=== PATIENT | female | born 1995 | race Caucasian/White ===

== ENCOUNTER 2020-10-14 10:45 | Inpatient (IN) | payer OTHER ==
[2020-10-14] MEDS ORDERED: Ondansetron 4 MG/2 ML SDV IVPUSH PRN (19:23)
[2020-10-14] MEDS ORDERED: Sodium Chloride 0.9% 10 ML Syringe FLUSH PRN (19:23)
[2020-10-14] MEDS ORDERED: Calcium Carbonate 500 MG Tab.Chew PO PRN (19:23)
[2020-10-14] MEDS ORDERED: Oxytocin/Lactated Ringers 10 UNIT/1,000 ML BAG IV SCH ×2 (19:30→22:30)
--- NOTE | 2020-10-14 20:06 | PCM.LDHP ---
L&D History of Present Illness - General Date of Service: 10/14/20 Admit Problem/Dx: Patient Status Order with Admit Dx/Problem 10/14/20 19:23 Patient Status [ADT] Routine Admission Diagnosis/Problem Admission Diagnosis/Problem 10/14/20 19:58 Robin is a 25-year-old 1 para 0 white female who is at 40-2/7 weeks gestational age with an STELLA of 10/12/2020 admitted for induction of labor. Source of Information: Patient History Limitations: Reports: No Limitations - History of Present Illness Introduction:: Robin is a 25-year-old 1 para [address] Kamryn Villalobos who is at 40-2/7 weeks gestational age with an STELLA of 10/12/2020 admitted for induction of labor. The procedure and process of induction of labor, its risks, benefits, alternatives of care including allowing for natural onset of labor all discussed with patient and her Almas. They appear to understand and wish to proceed with the induction. She has given verbal consent for this. 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 STELLA 10/12/2020 based upon LMP started 01/06/2020 and supported by 2 ultrasounds done on 03/09/2020 and 02/24/2020. Patient was first seen for the at 11 weeks and 1 day regular basis throughout the . She made normal progress with normal fundal height growth. Her weight gain was from 236 pounds to 253 pounds for a 27 pound increase. Her vital signs are stable throughout the course. Patient had nausea early in and was treated with Zofran and promethazine gel. Ultrasound x2 were consistent with dates. Diabetic screen test was normal. Relatively unrem arkable was noted. Group B strep screen was negative. laboratory testing: Blood is a positive with a negative antibody screen. First hemoglobin was 13.7 and platelets were 367. She is rubella immune. RPR was nonreactive. Hepatitis B surface antigen was nonreactive. Chlamydia and gonorrhea were not detected. TSH done on 08/28/2018 was normal at 1.47 microunits/mL. Second trimester testing showed a hemoglobin of 11.7. 1 hour GTT was 170 mg/dL. Group B strep screen was negative. Patient received vaccinations days B 1993, HPV 2016, MMR 1996 and meningococcal 2011. Tdap was given on 07/30/2020. Allergies: Codeinereaction unknown Medications: 1. Zofran 8 mg - 1/2 tablet every 6 hours as needed for nausea 2. Vitamin B6 1 tablet daily at nighttime 3. vitamins 1 daily. Past medical history: 1. PCOS 2. History of abnormal Pap smear Family history: Mother father alive and well. 1 brother 1 sister alive and well. Maternal grandmother secondary to breast cancer in her 70s. Paternal grandfather, maternal grand father are alive in general good health. Paternal grandmother at an earlier age. No family history of bleeding, blood clotting, anesthesia or pregnancies problems. Social history: Patient is , lives in the [facility]. Does not use any significant muscle alcohol, drugs or tobacco. 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 Review of systems: In general patient has no complaints. Skin: Negative Lungs: No infectious symptoms or shortness of breath Cardiovascular: No chest pain or exercise intolerance Breasts: No lumps, changes in size, pain, dimpling, discharge or axillary or supraclavicular concerns. GI: Negative : changes noted Musculoskeletal: Negative Neurological: Negative In general the patient is well-developed, well-nourished, pleasant female of stated age in no acute distress. Skin is warm dry without lesions. HEENT, neck and back within normal limits. Lungs are clear with good breath sounds in all lung l[place]. Cardiovascular exam shows regular and rhythm without murmurs. Breast exam is deferred Abdomen is gravid with fundal height consistent with term . Genital per digital exam shows cervix to be 2+ centimeters, 90% effaced, -2 station, mid position, soft, cephalic presentation. AROM is undertaken with resultant clear amniotic fluid. Extremities and neurological exam are grossly within normal limits. - Related Data Allergies/Adverse Reactions: Allergies Allergy/AdvReac Type Severity Reaction Status Date / Time codeine Allergy Rash Verified 10/14/20 19:23 Home Medications: Home Meds Ondansetron [Zofran] 4 mg PO DAILY 09/15/20 [History] Vits #93/Iron Fum/FA [ Formula Tablet] 1 each PO DAILY 09/15/20 [History] Past Medical History - Past Health History Medical/Surgical History: Denies Medical/Surgical History H&P Review of Systems - Review of Systems: Review Of Systems: See Below L&D Exam - Exam Exam: See Below - Vital Signs Vital Signs: Last Vital Signs Temp 37.0 C 10/14/20 19:06 Pulse 85 10/14/20 19:06 Resp 16 10/14/20 19:06 BP 135/83 10/14/20 19:06 Pulse Ox 100 10/14/20 19:06 Weight: 115.984 kg - Patient Data Lab Results Last 24 hrs: Laboratory Results - last 24 hr 10/14/20 Range/Units 19:38 WBC 12.37 H (3.98-10.04) K/mm3 RBC 4.40 (3.98-5.22) M/mm3 Hgb 12.4 (11.2-15.7) gm/dl Hct 38.3 (34.1-44.9) % MCV 87.0 (79.4-94.8) fl MCH 28.2 (25.6-32.2) pg MCHC 32.4 (32.2-35.5) g/dl RDW Std Deviation 46.7 H (36.4-46.3) fL Plt Count 318 (182-369) K/mm3 MPV 10.1 (9.4-12.3) fl Neut % (Auto) 70.0 (34.0-71.1) % Lymph % (Auto) 19.2 L (19.3-51.7) % [place] % (Auto) 9.0 (4.7-12.5) % Eos % (Auto) 1.1 (0.7-5.8) Baso % (Auto) 0.1 (0.1-1.2) % Neut # (Auto) 8.66 H (1.56-6.13) K/mm3 Lymph # (Auto) 2.38 (1.18-3.74) K/mm3 [place] # (Auto) 1.11 H (0.24-0.36) K/mm3 Eos # (Auto) 0.14 (0.04-0.36) K/mm3 Baso # (Auto) 0.01 (0.01-0.08) K/mm3 Result Diagrams: 10/14/20 19:38 Problem List Initiated/Reviewed/Updated: Yes Orders Last 24hrs: Active Orders 24 hr Category Date Time Status Patient Status [ADT] Routine ADT 10/14/20 19:23 Active Activity as Tolerated [RC] PFP Care 10/14/20 19:23 Active Communication Order [RC] ASDIRECTED Care 10/14/20 19:23 Active Heart Tones [RC] ASDIRECTED Care 10/14/20 19:24 Active Non Stress Test [RC] PER UNIT ROUTINE Care 10/14/20 19:23 Active Notify Provider [RC] PFP Care 10/14/20 19:23 Active Notify Provider [RC] PRN Care 10/14/20 19:23 Active Peripheral IV Care [RC] . DIRECTED Care 10/14/20 19:24 Active Vital Signs [RC] PER UNIT ROUTINE Care 10/14/20 19:23 Active BLOOD BANK HOLD SPECIMEN [BBK] Stat Lab 10/14/20 19:23 Ordered CBC WITH AUTO DIFF [HEME] Stat Lab 10/14/20 19:38 Results CORONAVIRUS COVID-19 DANIEL [MOLEC] Stat Lab 10/14/20 19:20 Received RAPID PLASMA REAGIN,RPR [CHEM] Routine Lab 10/14/20 19:38 Received Calcium Carbonate [Tums] Med 10/14/20 19:23 Active 1,000 mg PO Q2H PRN Lactated Ringers [Ringers, Lactated] 1,000 ml Med 10/14/20 19:30 Active IV ASDIRECTED Ondansetron [Zofran] Med 10/14/20 19:23 Active 4 mg IVPUSH Q4H PRN Oxytocin/Lactated Ringers [Pitocin in LR 10 Units/1,000 Med 10/14/20 19:30 Active ML] 10 unit in 1,000 ml IV .CONTINUOUS Sodium Chloride 0.9% [Saline Flush] Med 10/14/20 19:23 Active 10 ml FLUSH ASDIRECTED PRN Electronic Heart Tones Ext w TOCO [WOMSER] Oth 10/14/20 19:23 Ordered Routine Electronic Heart Tones Internal [WOMSER] Per Unit Oth 10/14/20 19:23 Ordered Routine Peripheral IV Insertion Adult [OM.PC] Routine Oth 10/14/20 19:23 Ordered Resuscitation Status Routine Resus Stat 10/14/20 19:23 Ordered Medication Orders Calcium Carbonate/Glycine (Tums) 1,000 mg PO Q2H PRN PRN Reason: Indigestion Oxytocin/Lactated Ringer's (Pitocin In Lr 10 Units/1,000 Ml) 10 unit in 1,000 mls @ 500 mls/hr IV .CONTINUOUS PAIGE Lactated Ringer's (Ringers, Lactated) 1,000 mls @ 100 mls/hr IV ASDIRECTED PAIGE Ondansetron HCl (Zofran) 4 mg IVPUSH Q4H PRN PRN Reason: Nausea/Vomiting Sodium Chloride (Saline Flush) 10 ml FLUSH ASDIRECTED PRN PRN Reason: Keep Vein Open Assessment/Plan Comment:: 1.Robin is a 25-year-old 1 para 0 white female who is at 40-2/7 weeks gestational age with an STELLA of 10/12/2020 admitted for induction of labor. 2. Group B strep screen negative 3. Patient plans to breast-feed 4. Patient up-to-date regarding her Tdap 5. Patient interested in epidural for labor analgesia Plan: 1. AROM induction of labor, will augment with Pitocin as needed 2.s Support breast-feeding plan 3. Routine labor care 4. Epidural as needed per patient desire 5. Labs to consist of CBC, Covid19, RPR.
[2020-10-14] MEDS ORDERED: fentaNYL 100 MCG/2 ML SDV EPIDUR PRN (23:49)
[2020-10-14] MEDS ORDERED: ePHEDrine 50 MG/ML SDV IVPUSH PRN (23:49)
[2020-10-14] MEDS ORDERED: diphenhydrAMINE 50 MG/ML SDV IVPUSH PRN (23:49)
[2020-10-15] MEDS ORDERED: Bupivacaine 0.25% 10 ML SDV ONE
[2020-10-15] MEDS: Lactated Ringers 1,000 ML IV SCH ×3 (00:15→05:48)
[2020-10-15] MEDS: Bupivacaine/fentaNYL/NS 100 ML Bag EPIDUR PRN ×2 (00:38→06:08)
--- NOTE | 2020-10-15 00:54 | PCM.PREANE ---
Preanesthetic Assessment - Procedure Proposed Procedure: brianne - Anesthesia/Transfusion/Family Hx Anesthesia History: No Prior Anesthesia Family History of Anesthesia Reaction: No Transfusion History: No Prior Transfusion(s) - Review of Systems General: No Symptoms Pulmonary: No Symptoms Cardiovascular: No Symptoms Gastrointestinal: Abdominal Pain (contractions) Neurological: No Symptoms Other: Reports: None - Physical Assessment Vital Signs: Last Vital Signs Temp 98.6 F 10/14/20 19:06 Pulse 85 10/14/20 19:06 Resp 16 10/14/20 19:06 BP 135/83 10/14/20 19:06 Pulse Ox 100 10/14/20 19:06 Height: 5 ft 11 in Weight: 115.984 kg ASA Class: 2 Mental Status: Alert & Oriented x3 Airway Class: Mallampati = 1 Dentition: Reports: Normal Dentition Thyro-Mental Finger Breadths: 3 Mouth Opening Finger Breadths: 3 ROM/Head Extension: Full Lungs: Clear to Auscultation, Normal Respiratory Effort Cardiovascular: Regular Rate, Regular Rhythm - Lab Values: Laboratory Last Values WBC 12.37 K/mm3 (3.98-10.04) H 10/14/20 19:38 RBC 4.40 M/mm3 (3.98-5.22) 10/14/20 19:38 Hgb 12.4 gm/dl (11.2-15.7) 10/14/20 19:38 Hct 38.3 % (34.1-44.9) 10/14/20 19:38 MCV 87.0 fl (79.4-94.8) 10/14/20 19:38 MCH 28.2 pg (25.6-32.2) 10/14/20 19:38 MCHC 32.4 g/dl (32.2-35.5) 10/14/20 19:38 RDW Std Deviation 46.7 fL (36.4-46.3) H 10/14/20 19:38 Plt Count 318 K/mm3 (182-369) 10/14/20 19:38 MPV 10.1 fl (9.4-12.3) 10/14/20 19:38 Neut % (Auto) 70.0 % (34.0-71.1) 10/14/20 19:38 Lymph % (Auto) 19.2 % (19.3-51.7) L 10/14/20 19:38 [place] % (Auto) 9.0 % (4.7-12.5) 10/14/20 19:38 Eos % (Auto) 1.1 (0.7-5.8) 10/14/20 19:38 Baso % (Auto) 0.1 % (0.1-1.2) 10/14/20 19:38 Neut # (Auto) 8.66 K/mm3 (1.56-6.13) H 10/14/20 19:38 Lymph # (Auto) 2.38 K/mm3 (1.18-3.74) 10/14/20 19:38 [place] # (Auto) 1.11 K/mm3 (0.24-0.36) H 10/14/20 19:38 Eos # (Auto) 0.14 K/mm3 (0.04-0.36) 10/14/20 19:38 Baso # (Auto) 0.01 K/mm3 (0.01-0.08) 10/14/20 19:38 Manual Slide Review Not Reportable 10/14/20 19:38 RPR Non-reactive (NONREACTIVE) 10/14/20 19:38 SARS-CoV-2 RNA (DANIEL) Negative (NEGATIVE) 10/14/20 19:20 - Allergies Allergies/Adverse Reactions: Allergies Allergy/AdvReac Type Severity Reaction Status Date / Time codeine Allergy Rash Verified 10/14/20 19:23 - Blood Blood Available: No - Acknowledgements Anesthesia Type Planned: Epidural Pt an Appropriate Candidate for the Planned Anesthesia: Yes Alternatives and Risks of Anesthesia Discussed w Pt/Guardian: Yes Pt/Guardian Understands and Agrees with Anesthesia Plan: Yes PreAnesthesia Questionnaire - Past Health History Medical/Surgical History: Denies Medical/Surgical History Cardiovascular History: Reports: None Respiratory History: Reports: None Gastrointestinal History: Reports: GERD 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: , Other (See Below) : 1 Para: 0 Other OB/BYN History: PCOS Musculoskeletal History: Reports: None Neurological History: Reports: None Oncologic (Cancer) History: Reports: None - Infectious Disease History Infectious Disease History: Reports: Chicken Pox - SUBSTANCE USE Tobacco Use Status *Q: Never Tobacco User Tobacco Use Within Last Twelve Months: No Second Hand Smoke Exposure: No Days Per Week of Alcohol Use: 0 Recreational Drug Use History: No - HOME MEDS Home Medications: Home Meds Ondansetron [Zofran] 4 mg PO DAILY 09/15/20 [History] Vits #93/Iron Fum/FA [ Formula Tablet] 1 each PO DAILY 09/15/20 [History] Acetaminophen [Tylenol] 650 mg PO Q4H PRN 10/14/20 [History] Promethazine [Phenergan] 0.5 ml TOP ASDIRECTED 10/14/20 [History] - CURRENT (IN HOUSE) MEDS Current Meds: Current Medications Calcium Carbonate/Glycine (Tums) 1,000 mg PO Q2H PRN PRN Reason: Indigestion Diphenhydramine HCl (Benadryl) 25 mg IVPUSH Q6H PRN PRN Reason: pruritis Ephedrine Sulfate (Ephedrine Sulfate) 5 mg IVPUSH ASDIRECTED PRN PRN Reason: Hypotension Fentanyl (Sublimaze) 100 mcg EPIDUR Q3H PRN PRN Reason: Pain Last Admin: 10/15/20 00:37 Dose: 100 mcg Documented by: Fentanyl/Bupivacaine HCl (Fentanyl/Bupivacaine/Ns 2 Mcg-0.125% 100 Ml) 100 ml EPIDUR ASDIRECTED PRN PRN Reason: Pain Last Admin: 10/15/20 00:38 Dose: 100 ml Documented by: Oxytocin/Lactated Ringer's (Pitocin In Lr 10 Units/1,000 Ml) 10 unit in 1,000 mls @ 500 mls/hr IV .CONTINUOUS PAIGE Lactated Ringer's (Ringers, Lactated) 1,000 mls @ 100 mls/hr IV ASDIRECTED PAIGE Last Admin: 10/15/20 00:15 Dose: 999 mls/hr Documented by: Oxytocin/Lactated Ringer's (Pitocin In Lr 10 Units/1,000 Ml) 10 unit in 1,000 mls @ 12 mls/hr IV TITRATE PAIGE; Protocol Ondansetron HCl (Zofran) 4 mg IVPUSH Q4H PRN PRN Reason: Nausea/Vomiting Sodium Chloride (Saline Flush) 10 ml FLUSH ASDIRECTED PRN PRN Reason: Keep Vein Open
[2020-10-15] MEDS ORDERED: Lidocaine 1% 50 ML MDV ONE (10:54)
--- NOTE | 2020-10-15 11:24 | PCM.SN.2 ---
- Free Text/Narrative Note: Delivery note: Robin is a 25-year-old 1 now para 1001 white female who is at 40-2/7 weeks gestational age with an STELLA of 10/12/2020 admitted for induction of labor. Cervix is dilated to plus centimeters 90% effaced, -2 station, mid position and soft. Baby in a cephalic presentation. She underwent AROM with resultant clear amniotic fluid. She was monitored for approximately 3 to 4 hours and then was augmented with Pitocin. She underwent labor analgesia with epidural, with good results. She made steady progress and became completely dilated at approximately 0900 hrs. She pushed well and at 1045 hrs. on 10/15/2020 she delivered a viable, 3790 g (8 pounds 6 ounces), 22 0.0 inch long male infant with Apgars of 8 and 9 in a direct occiput anterior position. The baby was placed on mom's abdomen, nose and mouth were bulb suction and the baby was dried and stimulated. Pitocin was increased per protocol to 500 cc an hour to facilitate increase in uterine tone and decrease likelihood of bleeding. Cord blood was obtained. There were 3 vessels the umbilical cord. Patient had a bi-sulcus perineal laceration which is second-degree in nature. This was repaired in a routine fashion using 3-0 Monocryl suture. Lidocaine 1% - 20 cc total was administered in addition to the labor epidural anesthesia for adequate laceration repair anesthesia. Patient tolerated this well. Placenta delivered at 1054 hrs. in a [facility] presentation, appeared intact and complete and was discarded per patient desire. Patient plans to breast-feed. Estimated blood loss was 200 cc. Condition: Good.
[2020-10-15] MEDS ORDERED: Benzocaine/Menthol 20%-0.5% Spray 56 GM Canister TOP PRN (12:19)
[2020-10-15] MEDS ORDERED: Acetaminophen 325 MG Tab PO PRN (12:19)
[2020-10-15] MEDS: Witch Hazel Medicated Pads 40/Jar TOP PRN (13:00)
[2020-10-15] MEDS: Ibuprofen 600 MG Tab PO PRN ×2 (13:01→20:31)
[2020-10-15] MEDS: Docusate Sodium 100 MG Cap PO SCH (20:30)
[2020-10-16] MEDS: Ibuprofen 600 MG Tab PO PRN ×3 (03:29→20:25)
[2020-10-16] MEDS: Prenatal Multivitamin with Calcium/Folic Acid/Iron Tab PO SCH (08:02)
[2020-10-16] MEDS: Docusate Sodium 100 MG Cap PO SCH ×2 (08:02→20:26)
--- NOTE | 2020-10-16 08:29 | PCM.SN.2 ---
- Free Text/Narrative Note: note: Patient is doing well in the period. Minimal lochia, voiding well, ambulated without problems. Nursing without concerns. Patient is afebrile, vital signs are stable Abdomen is flat, soft, uterus is below the umbilicus and is firm and nontender. Legs are nontender. Assessment: recovery going well. Plan: Routine care. Patient be discharged home within the next 24-48 hours.
[2020-10-16] MEDS: Magnesium Hydroxide 400 MG/5 ML Susp 30 ML Cup PO PRN ×3 (11:23→20:25)
--- NOTE | 2020-10-16 12:08 | PCM48HPAN ---
Post Anesthesia Note - EVALUATION WITHIN 48HRS OF ANESTHETIC Vital Signs in Normal Range: Yes Patient Participated in Evaluation: Yes Respiratory Function Stable: Yes Airway Patent: Yes Cardiovascular Function Stable: Yes Hydration Status Stable: Yes Pain Control Satisfactory: Yes Nausea and Vomiting Control Satisfactory: Yes Mental Status Recovered: Yes Vital Signs: Last Vital Signs Temp 97.7 F 10/16/20 08:02 Pulse 88 10/16/20 08:02 Resp 15 10/16/20 08:02 BP 111/50 L 10/16/20 08:02 Pulse Ox 98 10/16/20 08:02
[2020-10-16] MEDS: Witch Hazel Medicated Pads 40/Jar TOP PRN (16:23)
[2020-10-17] MEDS: Ibuprofen 600 MG Tab PO PRN (06:00)
--- NOTE | 2020-10-17 08:36 | PCM.DCSUM1 ---
Discharge Summary - Hospital Course Free Text/Narrative:: [facility] Provider Simple Note Patient Name: ROBIN JARQUIN Date of : [birth year] Patient Status: Inpatient Attending Provider: Marvin Caruso Date: 10/15/20 11:20 Initialization Date: 10/15/20 11:20 - Free Text/Narrative Note: Delivery note: Robin is a 25-year-old 1 now para 1001 white female who is at 40-2/7 weeks gestational age with an STELLA of 10/12/2020 admitted for induction of labor. Cervix is dilated to plus centimeters 90% effaced, -2 station, mid position and soft. Baby in a cephalic presentation. She underwent AROM with resultant clear amniotic fluid. She was monitored for approximately 3 to 4 hours and then was augmented with Pitocin. She underwent labor analgesia with epidural, with good results. She made steady progress and became completely dilated at approximately 0900 hrs. She pushed well and at 1045 hrs. on 10/15/2020 she delivered a viable, 3790 g (8 pounds 6 ounces), 22 0.0 inch long male infant with Apgars of 8 and 9 in a direct occiput anterior position. The baby was placed on mom's abdomen, nose and mouth were bulb suction and the baby was dried and stimulated. Pitocin was increased per protocol to 500 cc an hour to facilitate increase in uterine tone and decrease likelihood of bleeding. Cord blood was obtained. There were 3 vessels the umbilical cord. Patient had a bi-sulcus perineal laceration which is second-degree in nature. This was repaired in a routine fashion using 3-0 Monocryl suture. Lidocaine 1% - 20 cc total was administered in addition to the labor epidural anesthesia for adequate laceration repair anesthesia. Patient tolerated this well. Placenta delivered at 1054 hrs. in a [facility] presentation, appeared intact and complete and was discarded per patient desire. Patient plans to breast-feed. Estimated blood loss was 200 cc. Condition: Good. HPI Initial Comments: [facility] Provider Simple Note Patient Name: ROBIN JARQUIN Date of : [birth year] Patient Status: Inpatient Attending Provider: Arnold,Marvin F Date: 10/15/20 11:20 Initialization Date: 10/15/20 11:20 - Free Text/Narrative Note: Delivery note: Robin is a 25-year-old 1 now para 1001 white female who is at 40-2/7 weeks gestational age with an STELLA of 10/12/2020 admitted for induction of labor. Cervix is dilated to plus centimeters 90% effaced, -2 station, mid position and soft. Baby in a cephalic presentation. She underwent AROM with resultant clear amniotic fluid. She was monitored for approximately 3 to 4 hours and then was augmented with Pitocin. She underwent labor analgesia with epidural, with good results. She made steady progress and became completely dilated at approximately 0900 hrs. She pushed well and at 1045 hrs. on 10/15/2020 she delivered a viable, 3790 g (8 pounds 6 ounces), 22 0.0 inch long male with Apgars of 8 and 9 in a direct occiput anterior position. The baby was placed on mom's abdomen, nose and mouth were bulb suction and the baby was dried and stimulated. Pitocin was increased per protocol to 500 cc an hour to facilitate increase in uterine tone and decrease likelihood of bleeding. Cord blood was obtained. There were 3 vessels the umbilical cord. Patient had a bi-sulcus perineal laceration which is second-degree in nature. This was repaired in a routine fashion using 3-0 Monocryl suture. Lidocaine 1% - 20 cc total was administered in addition to the labor epidural anesthesia for adequate laceration repair anesthesia. Patient tolerated this well. Placenta delivered at 1054 hrs. in a [place] presentation, appeared intact and complete and was discarded per patient desire. Patient plans to breast-feed. Estimated blood loss was 200 cc. Condition: Good. Brief History: [facility] . Provider Simple Note. Patient Name: ROBIN JARQUIN [facility] Record Number: [id number]. Date of : [birth year]Patient Status: Inpatient. Attending Provider: Marvin Caruso FAccount Number: [id number]. Date: 10/15/20 11:20Initialization Date: 10/15/20 11:20. - Free Text/Narrative. Note: Delivery note: Robin is a 25-year-old 1 now para 1001 white female who is at 40-2/7 weeks gestational age with an STELLA of 10/12/2020 admitted for induction of labor. Cervix is dilated to plus centimeters 90% effaced, -2 station, mid position and soft. Baby in a cephalic presentation. She underwent AROM with resultant clear amniotic fluid. She was monitored for approximately 3 to 4 hours and then was augmented with Pitocin. She underwent labor analgesia with epidural, with good results. She made steady progress and became completely dilated at approximately 0900 hrs. She pushed well and at 1045 hrs. on 10/15/2020 she delivered a viable, 3790 g (8 pounds 6 ounces), 22 0.0 inch long male with Apgars of 8 and 9 in a direct occiput anterior position. The baby was placed on mom's abdomen, nose and mouth were bulb suction and the baby was dried and stimulated. Pitocin was increased per protocol to 500 cc an hour to facilitate increase in uterine tone and decrease likelihood of bleeding. Cord blood was obtained. There were 3 vessels the umbilical cord. Patient had a bi-sulcus perineal laceration which is second- degree in nature. This was repaired in a routine fashion using 3-0 Monocryl suture. Lidocaine 1% - 20 cc total was administered in addition to the labor epidural anesthesia for adequate laceration repair anesthesia. Patient tolerated this well. Placenta delivered at 1054 hrs. in a [place] presentation, appeared intact and complete and was discarded per patient desire. Patient plans to breast-feed. Estimated blood loss was 200 cc. Condition: Good. [facility] . Provider Simple Note. Patient Name: ROBIN JARQUIN [facility] Record Number: [id number]. Date of : [birth year]Patient Status: Inpatient. Attending Provider: Marvin Caruso FAccount Number: [id number]. Date: 10/15/20 11:20Initialization Date: 10/15/20 11:20. - Free Text/Narrative. Note: Delivery note: Robin is a 25-year-old 1 now para 1001 white female who is at 40-2/7 weeks gestational age with an STELLA of 10/12/2020 admitted for induction of labor. Cervix is dilated to plus centimeters 90% effaced, -2 station, mid position and soft. Baby in a cephalic presentation. She underwent AROM with resultant clear amniotic fluid. She was monitored for approximately 3 to 4 hours and then was augmented with Pitocin. She underwent labor analgesia with epidural, with good results. She made steady progress and became completely dilated at approximately 0900 hrs. She pushed well and at 1045 hrs. on 10/15/2020 she delivered a viable, 3790 g (8 pounds 6 ounces), 22 0.0 inch long male infant with Apgars of 8 and 9 in a direct occiput anterior position. The baby was placed on mom's abdomen, nose and mouth were bulb suction and the baby was dried and stimulated. Pitocin was increased per protocol to 500 cc an hour to facilitate increase in uterine tone and decrease likelihood of bleeding. Cord blood was obtained. There were 3 vessels the umbilical cord. Patient had a bi-sulcus perineal laceration which is second- degree in nature. This was repaired in a routine fashion using 3-0 Monocryl suture. Lidocaine 1% - 20 cc total was administered in addition to the labor epidural anesthesia for adequate laceration repair anesthesia. Patient tolerated this well. Placenta delivered at 1054 hrs. in a [place] presentation, appeared intact and complete and was discarded per patient desire. Patient plans to breast-feed. Estimated blood loss was 200 cc. Condition: Good. Diagnosis: Stroke: No - Discharge Data Discharge Date: 10/17/20 Discharge Disposition: Home, Self-Care 01 Condition: Good - Referral to Home Health Primary Care Physician: Marvin Caruso MD - Discharge Diagnosis/Problem(s) (1) Second degree perineal laceration, delivered, current hospitalization SNOMED Code(s): 940753341, 124811452 ICD Code: O70.1 - SECOND DEGREE PERINEAL LACERATION DURING DELIVERY Status: Acute Current Visit: Yes (2) Normal delivery at term SNOMED Code(s): 08518190 ICD Code: O80 - ENCOUNTER FOR FULL-TERM UNCOMPLICATED DELIVERY Status: Acute Current Visit: Yes - Patient Summary/Data Complications: none Consults: none Hospital Course: uneventful - Patient Instructions Diet: Usual Diet as Tolerated Driving: Do Not Drive (x48 hours) Showering/Bathing: May Shower Notify Provider of: Fever, Increased Pain, Swelling and Redness, Drainage, Nause a and/or Vomiting - Discharge Plan *PRESCRIPTION DRUG MONITORING PROGRAM REVIEWED*: Not Applicable *COPY OF PRESCRIPTION DRUG MONITORING REPORT IN PATIENT [place]: Not Applicable Home Medications: Home Meds Ondansetron [Zofran] 4 mg PO DAILY 09/15/20 [History] Vits #93/Iron Fum/FA [ Formula Tablet] 1 each PO DAILY 09/15/20 [History] Acetaminophen [Tylenol] 650 mg PO Q4H PRN 10/14/20 [History] Promethazine [Phenergan] 0.5 ml TOP ASDIRECTED 10/14/20 [History] Acetaminophen [Tylenol] 650 mg PO Q6H PRN tablet 10/17/20 [Rx] Benzocaine/Menthol [Dermoplast Pain Relief [place]] 1 spray TOP ASDIRECTED PRN canister 10/17/20 [Rx] Docusate Sodium [Colace] 100 mg PO BID cap 10/17/20 [Rx] Ibuprofen [Motrin] 600 mg PO Q6H PRN tablet 10/17/20 [Rx] barbara Perez [Tucks] 1 pad TOP ASDIRECTED PRN pad 10/17/20 [Rx] Referrals: Kamryn Villalobos MD [Physician] - (Patient to call for appointment with Dr Villalobos) - Discharge Summary/Plan Comment DC Time >30 min.: No - Patient Data Vitals - Most Recent: Last Vital Signs Temp 98.4 F 10/17/20 03:16 Pulse 74 10/17/20 03:16 Resp 16 10/17/20 03:16 BP 123/75 10/17/20 03:16 Pulse Ox 99 10/17/20 03:16 Weight - Most Recent: 255 lb 11.2 oz Med Orders - Current: Current Medications Acetaminophen (Tylenol) 650 mg PO Q4H PRN PRN Reason: mild pain or fever Benzocaine/Menthol (Dermoplast Pain Relief [place]) 0 gm TOP ASDIRECTED PRN PRN Reason: Perineal Comfort Measure Last Admin: 10/15/20 13:00 Dose: 1 applic Documented by: Docusate Sodium (Colace) 100 mg PO BID PAIGE Last Admin: 10/16/20 20:26 Dose: 100 mg Documented by: Ibuprofen (Motrin) 600 mg PO Q4H PRN PRN Reason: Mild pain or fever Last Admin: 10/17/20 06:00 Dose: 600 mg Documented by: Magnesium Hydroxide (Milk Of Magnesia) 30 ml PO Q4H PRN PRN Reason: Constipation Last Admin: 10/16/20 20:25 Dose: 30 ml Documented by: Prenat Multivit/[place]/Iron/Folic Ac ( Plus Iron) 1 each PO DAILY PAIGE Last Admin: 10/16/20 08:02 Dose: 1 each Documented by: Barbara Perez ([facility]) 1 pad TOP ASDIRECTED PRN PRN Reason: Perineal Comfort Measure Last Admin: 10/16/20 16:23 Dose: 1 applic Documented by: Discontinued Medications Calcium Carbonate/Glycine (Tums) 1,000 mg PO Q2H PRN PRN Reason: Indigestion Diphenhydramine HCl (Benadryl) 25 mg IVPUSH Q6H PRN PRN Reason: pruritis Ephedrine Sulfate (Ephedrine Sulfate) 5 mg IVPUSH ASDIRECTED PRN PRN Reason: Hypotension Fentanyl (Sublimaze) 100 mcg EPIDUR Q3H PRN PRN Reason: Pain Last Admin: 10/15/20 00:37 Dose: 100 mcg Documented by: Fentanyl/Bupivacaine HCl (Fentanyl/Bupivacaine/Ns 2 Mcg-0.125% 100 Ml) 100 ml EPIDUR ASDIRECTED PRN PRN Reason: Pain Last Admin: 10/15/20 06:08 Dose: 100 ml Documented by: Oxytocin/Lactated Ringer's (Pitocin In Lr 10 Units/1,000 Ml) 10 unit in 1,000 mls @ 500 mls/hr IV .CONTINUOUS PAIGE Lactated Ringer's (Ringers, Lactated) 1,000 mls @ 100 mls/hr IV ASDIRECTED PAIGE Last Admin: 10/15/20 05:48 Dose: 100 mls/hr Documented by: Oxytocin/Lactated Ringer's (Pitocin In Lr 10 Units/1,000 Ml) 10 unit in 1,000 mls @ 12 mls/hr IV TITRATE PAIGE; Protocol Last Titration: 10/15/20 04:15 Dose: 8 munits/min, 48 mls/hr Documented by: Lidocaine HCl (Xylocaine 1%) Confirm Administered Dose 50 ml .ROUTE .[facility] ONE Stop: 10/15/20 10:55 Last Admin: 10/15/20 10:57 Dose: 50 ml Documented by: Ondansetron HCl (Zofran) 4 mg IVPUSH Q4H PRN PRN Reason: Nausea/Vomiting Sodium Chloride (Saline Flush) 10 ml FLUSH ASDIRECTED PRN PRN Reason: Keep Vein Open
[2020-10-17 11:19] VITALS: BP 136/82; PULSE 77
[2020-10-17] MEDS: Docusate Sodium 100 MG Cap PO SCH (11:35)
[2020-10-17] MEDS: Prenatal Multivitamin with Calcium/Folic Acid/Iron Tab PO SCH (11:35)
== END 2020-10-17 11:39 | disposition home or self-care (01) | DRG 807 ==
LOC: JD.OB 10:45 → OBSVTOIN 10-15 10:45 → JD.OB 10-15 10:46
PROVIDERS: ADMIT Obstetrics & Gynecology; ATTEND Obstetrics & Gynecology
PROC: 10E0XZZ Delivery of Products of Conception, External Approach (ICD-10-PCS; principal; 2020-10-15)
PROC: 0KQM0ZZ Repair Perineum Muscle, Open Approach (ICD-10-PCS; 2020-10-15)
PROC: 10907ZC Drainage of Amniotic Fluid, Therapeutic from Products of Conception, Via Natural or Artificial Opening (ICD-10-PCS; 2020-10-15)
PROC: 3E0R3BZ Introduction of Anesthetic Agent into Spinal Canal, Percutaneous Approach (ICD-10-PCS; 2020-10-15)
DX: O48.0 Post-term pregnancy (principal); Z37.0 Single live birth; O70.1 Second degree perineal laceration during delivery; Z3A.40 40 weeks gestation of pregnancy; Z20.822 Contact with and (suspected) exposure to COVID-19
CPT/HCPCS: 01967; 36415; 51702; 59025; 59409; 85025; 86592; A9270-GY; J2001; J2590; J3010; J3490; J7120; U0002

== ENCOUNTER 2020-10-31 11:28 | Emergency (ER) | payer OTHER ==
[2020-10-31] MEDS ORDERED: Ondansetron 4 MG/2 ML SDV IVPUSH ONE ×2 (11:51→14:39)
[2020-10-31] MEDS ORDERED: HYDROmorphone 0.5 MG/0.5 ML Syringe IVPUSH ONE (12:14)
[2020-10-31] MEDS ORDERED: Sodium Chloride 0.9% 1,000 ML IV STA ×3 (12:15→14:39)
[2020-10-31] MEDS ORDERED: Magnesium Sulfate/Water 2 GM/50 ML BAG IV ONE (12:51)
--- NOTE | 2020-10-31 13:53 | EDM.PDOC ---
ED HPI GENERAL MEDICAL PROBLEM - General Chief Complaint: Abdominal Pain Stated Complaint: ABDOMINAL PAIN/VOMITING 2 WEEKS Time Seen by Provider: 10/31/20 11:32 Source of Information: Reports: Patient, RN Notes Reviewed History Limitations: Reports: No Limitations - History of Present Illness INITIAL COMMENTS - FREE TEXT/NARRATIVE: Patient is a 25-year-old female presenting to the emergency department with complaint of nausea, vomiting, diarrhea, and intermittent fevers, as well as severe generalized abdominal cramping. She reports that symptoms began last evening. She had some Zofran left at home, however even with that she has not been able to keep any fluids down. Temperature at home was 101 last evening. She is had no known sick contacts. She did have a normal spontaneous vaginal delivery on October 15. States she does still have bleeding associated with this. Denies any abnormal vaginal discharge or pelvic pain. She has no respiratory symptoms. Vital signs on triage showed a temperature of 99.6 temporal, pulse rate 122, blood pressure 119/84, respirations 18, oxygen 94% on room air Lower Abdominal Pain Score (Numeric/FACES): 9 - Related Data Allergies Allergy/AdvReac Type Severity Reaction Status Date / Time codeine Allergy Rash Verified 10/31/20 11:42 Home Meds: Home Meds Ondansetron [Zofran] 4 mg PO DAILY 09/15/20 [History] Dicyclomine [Bentyl] 20 mg PO TID PRN #15 tab 10/31/20 [Rx] Ondansetron [Zofran ODT] 4 mg PO Q6H PRN #10 tab.dis 10/31/20 [Rx] Past Medical History - Past Health History Medical/Surgical History: Denies Medical/Surgical History Cardiovascular History: Reports: None Respiratory History: Reports: None Gastrointestinal History: Reports: GERD 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 Denies: Shortness of Breath, Cough Cardiovascular: Reports: No Symptoms. Denies: Chest Pain, Dyspnea on Exertion, Lightheadedness, Palpitations Endocrine: Reports: No Symptoms GI/Abdominal: Reports: Abdominal Pain (Generalized abdominal cramping that wraps around to her back.), Diarrhea, Nausea, Vomiting. Denies: Hematemesis, Hematochezia : Reports: No Symptoms Musculoskeletal: Reports: No Symptoms Skin: Reports: No Symptoms Neurological: Reports: No Symptoms. Denies: Dizziness, Headache Psychiatric: Reports: No Symptoms Hematologic/Lymphatic: Reports: No Symptoms Immunologic: Reports: No Symptoms ED EXAM, GI/ABD - Physical Exam Exam: See Below Exam Limited By: No Limitations General Appearance: Alert, Mild Distress Respiratory/Chest: No Respiratory Distress, Lungs Clear, Normal Breath Sounds, No Accessory Muscle Use, Chest Non-Tender Cardiovascular: Normal Peripheral Pulses, Regular Rate, Rhythm, No Edema, No Gallop, No JVD, No Murmur, No Rub GI/Abdominal Exam: Normal Bowel Sounds, Soft, No Organomegaly, No Distention, No Abnormal Bruit, No Mass, Pelvis Stable, Tender (Generalized tenderness throughout the abdomen.) Back Exam: Normal Inspection, Full Range of Motion. No: CVA Tenderness (L), CVA Tenderness (R) Neurological: Alert, Oriented, CN II-XII Intact, Normal Cognition, Normal Gait, Normal Reflexes, No Motor/Sensory Deficits Psychiatric: Normal Affect, Anxious Skin Exam: Warm, Dry, Intact, Normal Color, No Rash Course - Vital Signs Last Recorded V/S: Last Vital Signs Temp 99.6 F 10/31/20 11:38 Pulse 112 H 10/31/20 14:35 Resp 18 10/31/20 14:35 BP 125/103 H 10/31/20 14:35 Pulse Ox 95 10/31/20 14:35 - Orders/Labs/Meds Orders: Active Orders 24 hr Category Date Time Status CULTURE URINE [RM] Stat Lab 10/31/20 11:40 Received Sodium Chloride 0.9% [Normal Saline] 1,000 ml Med 10/31/20 14:39 Active IV NOW Medication Orders Sodium Chloride (Normal Saline) 1,000 mls @ 999 mls/hr IV NOW STA Stop: 10/31/20 15:39 Last Admin: 10/31/20 14:47 Dose: 999 mls/hr Documented by: JANUARY Labs: Laboratory Tests 10/31/20 10/31/20 10/31/20 Range/Units 11:40 11:50 11:50 WBC 11.21 H (3.98-10.04) K/mm3 RBC 5.32 H (3.98-5.22) M/mm3 Hgb 14.9 D (11.2-15.7) gm/dl Hct 45.4 H (34.1-44.9) % MCV 85.3 (79.4-94.8) fl MCH 28.0 (25.6-32.2) pg MCHC 32.8 (32.2-35.5) g/dl RDW Std Deviation 45.8 (36.4-46.3) fL Plt Count 442 H D (182-369) K/mm3 MPV 10.0 (9.4-12.3) fl Neut % (Auto) 87.3 H (34.0-71.1) % Lymph % (Auto) 4.5 L (19.3-51.7) % [place] % (Auto) 7.3 (4.7-12.5) % Eos % (Auto) 0.6 L (0.7-5.8) Baso % (Auto) 0.1 (0.1-1.2) % Neut # (Auto) 9.79 H (1.56-6.13) K/mm3 Lymph # (Auto) 0.50 L (1.18-3.74) K/mm3 [place] # (Auto) 0.82 H (0.24-0.36) K/mm3 Eos # (Auto) 0.07 (0.04-0.36) K/mm3 Baso # (Auto) 0.01 (0.01-0.08) K/mm3 Manual Slide Review Abnormal smear Sodium 142 (136-145) mEq/L Potassium 3.9 (3.5-5.1) mEq/L Chloride 103 (98-107) mEq/L Carbon Dioxide 20 L (21-32) mEq/L Anion Gap 22.9 H (5-15) BUN 16 (7-18) mg/dL Creatinine 1.3 H (0.55-1.02) mg/dL Est Cr Clr Drug Dosing 68.53 mL/min Estimated GFR (MDRD) 50 (>60) mL/min BUN/Creatinine Ratio 12.3 L (14-18) Glucose 100 (74-106) mg/dL Calcium 9.4 (8.5-10.1) mg/dL Magnesium (1.8-2.4) mg/dl Total Bilirubin 0.6 (0.2-1.0) mg/dL AST 16 (15-37) U/L ALT 29 (14-59) U/L Alkaline Phosphatase 94 (46-116) U/L C-Reactive Protein 6.8 H* (<1.0) mg/dL Total Protein 7.9 (6.4-8.2) g/dl Albumin 3.7 (3.4-5.0) g/dl Globulin 4.2 gm/dL Albumin/Globulin Ratio 0.9 L (1-2) Urine Color Yellow (Yellow) Urine Appearance Clear (Clear) Urine pH 6.0 (5.0-8.0) Ur Specific [place] 1.025 (1.005-1.030) Urine Protein 2+ H (Negative) Urine Glucose (UA) Negative (Negative) Urine Ketones Trace H (Negative) Urine Occult Blood 3+ H (Negative) Urine Nitrite Negative (Negative) Urine Bilirubin 1+ H (Negative) Urine Urobilinogen 0.2 (0.2-1.0) Ur Leukocyte Esterase 1+ H (Negative) Urine RBC 30-40 H (0-5) /hpf Urine WBC 5-10 H (0-5) /hpf Ur Epithelial Cells 0-5 (0-5) /hpf Urine Bacteria Few (FEW) /hpf Urine Mucus Few (FEW) /hpf 10/31/20 Range/Units 12:15 WBC (3.98-10.04) K/mm3 RBC (3.98-5.22) M/mm3 Hgb (11.2-15.7) gm/dl Hct (34.1-44.9) % MCV (79.4-94.8) fl MCH (25.6-32.2) pg MCHC (32.2-35.5) g/dl RDW Std Deviation (36.4-46.3) fL Plt Count (182-369) K/mm3 MPV (9.4-12.3) fl Neut % (Auto) (34.0-71.1) % Lymph % (Auto) (19.3-51.7) % [place] % (Auto) (4.7-12.5) % Eos % (Auto) (0.7-5.8) Baso % (Auto) (0.1-1.2) % Neut # (Auto) (1.56-6.13) K/mm3 Lymph # (Auto) (1.18-3.74) K/mm3 [place] # (Auto) (0.24-0.36) K/mm3 Eos # (Auto) (0.04-0.36) K/mm3 Baso # (Auto) (0.01-0.08) K/mm3 Manual Slide Review Sodium (136-145) mEq/L Potassium (3.5-5.1) mEq/L Chloride (98-107) mEq/L Carbon Dioxide (21-32) mEq/L Anion Gap (5-15) BUN (7-18) mg/dL Creatinine (0.55-1.02) mg/dL Est Cr Clr Drug Dosing mL/min Estimated GFR (MDRD) (>60) mL/min BUN/Creatinine Ratio (14-18) Glucose (74-106) mg/dL Calcium (8.5-10.1) mg/dL Magnesium 1.6 L (1.8-2.4) mg/dl Total Bilirubin (0.2-1.0) mg/dL AST (15-37) U/L ALT (14-59) U/L Alkaline Phosphatase (46-116) U/L C-Reactive Protein (<1.0) mg/dL Total Protein (6.4-8.2) g/dl Albumin (3.4-5.0) g/dl Globulin gm/dL Albumin/Globulin Ratio (1-2) Urine Color (Yellow) Urine Appearance (Clear) Urine pH (5.0-8.0) Ur Specific [place] (1.005-1.030) Urine Protein (Negative) Urine Glucose (UA) (Negative) Urine Ketones (Negative) Urine Occult Blood (Negative) Urine Nitrite (Negative) Urine Bilirubin (Negative) Urine Urobilinogen (0.2-1.0) Ur Leukocyte Esterase (Negative) Urine RBC (0-5) /hpf Urine WBC (0-5) /hpf Ur Epithelial Cells (0-5) /hpf Urine Bacteria (FEW) /hpf Urine Mucus (FEW) /hpf Meds: Medications Generic Name Dose Route Start Last Admin Trade Name Ulysses PRN Reason Stop Dose Admin Sodium Chloride 1,000 mls @ 999 mls/hr 10/31/20 14:39 10/31/20 14:47 Normal Saline IV 10/31/20 15:39 999 mls/hr NOW STA Administration Discontinued Medications Generic Name Dose Route Start Last Admin Trade Name Ulysses PRN Reason Stop Dose Admin Dicyclomine HCl 20 mg 10/31/20 14:38 10/31/20 14:47 Dicyclomine 10 Mg Cap PO 10/31/20 14:39 20 mg ONETIME ONE Administration Hydromorphone HCl 0.5 mg 10/31/20 12:14 10/31/20 12:24 Hydromorphone 0.5 Mg/0.5 Ml Syringe IVPUSH 10/31/20 12:15 0.5 mg ONETIME ONE Administration Sodium Chloride 1,000 mls @ 999 mls/hr 10/31/20 12:15 10/31/20 12:24 Normal Saline IV 10/31/20 13:15 999 mls/hr NOW STA Administration Magnesium Sulfate 2 gm in 50 mls @ 25 mls/hr 10/31/20 12:51 10/31/20 13:14 Magnesium Sulfate In Water 2 Gm/50 Ml IV 10/31/20 14:50 25 mls/hr ONETIME ONE Administration Sodium Chloride 1,000 mls @ 999 mls/hr 10/31/20 13:06 10/31/20 13:13 Normal Saline IV 10/31/20 14:06 999 mls/hr NOW STA Administration Ondansetron HCl 4 mg 10/31/20 11:51 10/31/20 11:54 Ondansetron 4 Mg/2 Ml Sdv IVPUSH 10/31/20 11:52 4 mg ONETIME ONE Administration Ondansetron HCl 4 mg 10/31/20 14:39 10/31/20 14:47 Ondansetron 4 Mg/2 Ml Sdv IVPUSH 10/31/20 14:40 4 mg ONETIME ONE Administration - Re-Assessments/Exams Free Text/Narrative Re-Assessment/Exam: Patient is a 25-year-old female presenting to the emergency department with complaints of fever, nausea, vomiting, diarrhea, and generalized abdominal cramping that began last evening. She is unable to keep fluids down. On triage, she was found to be tachycardic and borderline febrile with a temperature of 99.6. She did vomit 1 time upon arrival and was given a standing order of Zofran 4 mg IV. On exam, patient has diffuse generalized tenderness throughout her abdomen. Abdomen is soft and she has no guarding. She is approximately 2 weeks . She still has a small amount of vaginal bleeding. Denies any pelvic pain or abnormal vaginal discharge. Patient's exam findings are suspicious for a viral gastroenteritis. I have ordered blood work, urinalysis, 1 L bolus of normal saline, and Dilaudid 0.5 mg IV. 10/31/20 13:51 Hematology was significant for WBC minimally elevated 11.21, platelets of 442, CO2 low at 20, anion gap significantly elevated at 22.9. Creatinine 1.3, magnesium 1.6, CRP 6.8. Urinalysis shows 2+ protein, trace ketones 3+ occult blood, 1+ bili, 1+ leukocyte esterase, 30-40 RBCs, and 5-10 WBCs. She is having no urinary symptoms. I suspect the leukocyte esterase and WBCs are related to her continued lochia. Urine has been sent for culture. Patient is quite dehydrated and is likely suffering from a viral gastroenteritis. I will plan to give her an additional 2 L of normal saline as well as 2 g of IV magnesium. 10/31/20 1439 Patient complains of her nausea returning as well as some recurrence of abdominal cramping. I have ordered additional Zofran 4 mg IV and Bentyl 25 mg p.o as well as a third liter of normal saline bolus. 10/31/20 15:26 Patient's nausea and abdominal cramping has resolved. Her heart rate has improved to 96 after the fluid boluses. She is ready to go home. We will hour to finish her third liter of IV fluids and then discharge her home. Plan will be to discharge her home with a prescription for Zofran and Bentyl. Recommend clear liquid diet for 24 to 72 hours and then advance as tolerated. Discussed return precautions. Discharge instructions as documented. Departure - Departure Time of Disposition: 15:28 Disposition: Home, Self-Care 01 Condition: Good Clinical Impression: Gastroenteritis Vomiting Qualifiers: Vomiting type: unspecified Vomiting Intractability: non-intractable Nausea presence: with nausea Qualified Code(s): R11.2 - Nausea with vomiting, unspecified Diarrhea Qualifiers: Diarrhea type: unspecified type Qualified Code(s): R19.7 - Diarrhea, unspecified Abdominal pain Qualifiers: Abdominal location: generalized Qualified Code(s): R10.84 - Generalized abdominal pain - Discharge Information *PRESCRIPTION DRUG MONITORING PROGRAM REVIEWED*: No *COPY OF PRESCRIPTION DRUG MONITORING REPORT IN PATIENT [place]: No Prescriptions: Dicyclomine [Bentyl] 20 mg PO TID PRN #15 tab PRN Reason: Abdominal Pain Ondansetron [Zofran ODT] 4 mg PO Q6H PRN #10 tab.dis PRN Reason: Nausea/Vomiting Instructions: Viral Gastroenteritis, Adult, [id number] Referrals: Kamryn Villalobos MD [Primary Care Provider] - Forms: ED Department Discharge Additional Instructions: You were seen in the emergency department today for nausea, vomiting, diarrhea, and abdominal cramping since last evening. Work-up was completed and was consistent with a diagnosis of viral gastroenteritis, also known as the stomach flu. Your blood work did show that you are significantly dehydrated. While in the ER, you received 3 L of IV fluid, Zofran for nausea, pain medication, and Bentyl for abdominal cramping. You also had a low magnesium level and had this replaced in the emergency department. A prescription for Bentyl for abdominal cramping and Zofran for nausea has been provided. Recommend clear liquid diet for the next 24 to 72 hours and then slowly advance as tolerated. If your symptoms should worsen in any way or you are unable to tolerate oral fluids, please return to the emergency department for reevaluation. Sepsis Event Note (ED) - Evaluation Sepsis Screening Result: Possible Sepsis Risk - Focused Exam Vital Signs: Vital Signs Temp Pulse Resp BP Pulse Ox 10/31/20 14:35 112 H 18 125/103 H 95 10/31/20 11:38 99.6 F 122 H 18 94 L - My Orders Last 24 Hours: My Active Orders 10/31/20 11:40 CULTURE URINE [RM] Stat 10/31/20 14:39 Sodium Chloride 0.9% [Normal Saline] 1,000 ml IV NOW - Assessment/Plan Last 24 Hours: My Active Orders 10/31/20 11:40 CULTURE URINE [RM] Stat 10/31/20 14:39 Sodium Chloride 0.9% [Normal Saline] 1,000 ml IV NOW
[2020-10-31] MEDS ORDERED: Dicyclomine 10 MG Cap PO ONE (14:38)
[2020-10-31 14:43] VITALS: BP 125/103; PULSE 112
== END 2020-10-31 15:57 | disposition home or self-care (01) ==
LOC: JD.ED 11:28
DX: O99.63 Diseases of the digestive system complicating the puerperium (principal); K52.9 Noninfective gastroenteritis and colitis, unspecified; Z88.5 Allergy status to narcotic agent
CPT/HCPCS: 36415; 80053; 81001; 83735; 85025; 86140; 87086; 87088; 87186; 96365; 96366; 96375; 96376; 99284; A9270; J1170; J2405; J3475; J7030; 99283

== ENCOUNTER 2022-01-27 08:07 | Emergency (ER) | payer BC ==
[2022-01-27 11:24] VITALS: BP 116/71; PULSE 74
== END 2022-01-27 11:20 | disposition home or self-care (01) ==
LOC: JD.ED 08:07
DX: O20.0 Threatened abortion (principal); Z88.5 Allergy status to narcotic agent; Z3A.01 Less than 8 weeks gestation of pregnancy
CPT/HCPCS: 36415; 80053; 81001; 84702; 85025; 87040; 99283; 99284

== ENCOUNTER 2022-08-29 06:58 | Inpatient (IN) | payer BC ==
[~2022-08-29 06:58] MED LIST: Ropivacaine 0.2% PF 2 MG/ML 20 ML SDV ONE
[2022-08-29] MEDS ORDERED: Sodium Chloride 0.9% 10 ML Syringe FLUSH PRN (07:07)
[2022-08-29] MEDS ORDERED: Ondansetron 4 MG/2 ML SDV IVPUSH PRN (07:07)
[2022-08-29] MEDS ORDERED: Nalbuphine 10 MG/0.5 ML Syringe IVPUSH PRN (07:07)
[2022-08-29] MEDS ORDERED: Oxytocin/Lactated Ringers 10 UNIT/1,000 ML BAG IV SCH ×2 (07:15)
[2022-08-29] MEDS: Lactated Ringers 1,000 ML IV SCH ×2 (07:40→16:06)
[2022-08-29] MEDS ORDERED: diphenhydrAMINE 50 MG/ML SDV IVPUSH PRN (07:58)
[2022-08-29] MEDS ORDERED: ePHEDrine 50 MG/ML SDV IVPUSH PRN (07:58)
[2022-08-29] MEDS ORDERED: fentaNYL 100 MCG/2 ML SDV EPIDUR PRN (07:58)
[2022-08-29] MEDS ORDERED: Ropivacaine 200 MG in Premix Bag 1 BAG EPIDUR SCH (08:00)
[2022-08-29] MEDS ORDERED: Sodium Chloride 0.9% 10 ML Syringe FLUSH SCH (09:00)
[2022-08-29] MEDS ORDERED: Witch Hazel Medicated Pads 40/Jar TOP PRN (19:44)
[2022-08-29] MEDS ORDERED: Docusate Sodium 100 MG Cap PO PRN (19:44)
[2022-08-29] MEDS ORDERED: Benzocaine/Menthol 20%-0.5% Spray 78 GM Cannister TOP PRN (19:44)
[2022-08-29] MEDS: Ibuprofen 600 MG Tab PO PRN (20:55)
[2022-08-30] MEDS: Ibuprofen 600 MG Tab PO PRN ×3 (03:01→15:43)
[2022-08-30] MEDS: Acetaminophen 325 MG Tab PO PRN ×2 (03:40→08:50)
[2022-08-30 20:23] VITALS: BP 129/91; PULSE 76
== END 2022-08-30 20:08 | disposition home or self-care (01) | DRG 560 ==
LOC: JD.OB 06:58
PROVIDERS: ADMIT Obstetrics & Gynecology; ATTEND Obstetrics & Gynecology
PROC: 10E0XZZ Delivery of Products of Conception, External Approach (ICD-10-PCS; principal; 2022-08-29)
PROC: 10907ZC Drainage of Amniotic Fluid, Therapeutic from Products of Conception, Via Natural or Artificial Opening (ICD-10-PCS; 2022-08-29)
PROC: 3E033VJ Introduction of Other Hormone into Peripheral Vein, Percutaneous Approach (ICD-10-PCS; 2022-08-29)
PROC: 0KQM0ZZ Repair Perineum Muscle, Open Approach (ICD-10-PCS; 2022-08-29)
PROC: 3E0R3BZ Introduction of Anesthetic Agent into Spinal Canal, Percutaneous Approach (ICD-10-PCS; 2022-08-29)
PROC: 00HU33Z Insertion of Infusion Device into Spinal Canal, Percutaneous Approach (ICD-10-PCS; 2022-08-29)
DX: O36.5930 Maternal care for other known or suspected poor fetal growth, third trimester, not applicable or unspecified (principal); Z3A.38 38 weeks gestation of pregnancy; Z37.0 Single live birth; Z86.19 Personal history of other infectious and parasitic diseases; Z88.5 Allergy status to narcotic agent; O69.81X0 Labor and delivery complicated by cord around neck, without compression, not applicable or unspecified; O70.1 Second degree perineal laceration during delivery
CPT/HCPCS: 36415; 51702; 59025; 59409; 85027; 86592; 86850; 86900; 86901; A9270-GY; J2590; J2795; J3010; J7120

== ENCOUNTER 2023-01-28 10:20 | Emergency (ER) | payer BC ==
[2023-01-28] MEDS ORDERED: valACYclovir 1,000 MG Tab PO ONE (11:27)
[2023-01-28 12:18] VITALS: BP 121/90; PULSE 87
== END 2023-01-28 11:54 | disposition home or self-care (01) ==
LOC: JD.ED 10:20
DX: K04.7 Periapical abscess without sinus (principal); B00.1 Herpesviral vesicular dermatitis; Z79.899 Other long term (current) drug therapy
CPT/HCPCS: 99282; A9270; 99283

== ENCOUNTER 2023-05-21 10:57 | Emergency (ER) | payer BC ==
[2023-05-21 11:30] LABS: BASOPHILS PERCENT AUTO 0.4 % (0.0-1.0); EOSINOPHILS ABSOLUTE AUTO 0.3 K/mm3 (0.0-0.4); EOSINOPHILS PERCENT AUTO 2.4 % (0.0-6.0); HEMATOCRIT 42.8 % (37.0-47.0); HEMOGLOBIN 14.1 gm/dl (12.0-16.0); IMMATURE GRAN ABSOLUTE AUTO 0.03 K/mm3 (0.00-0.05); IMMATURE GRAN PERCENT AUTO 0.3 % (0.0-0.4); LYMPHOCYTES ABSOLUTE AUTO 2.5 K/mm3 (1.0-4.8); LYMPHOCYTES PERCENT AUTO 23.7 % (24.0-44.0); MEAN CORPUSCULAR HEMOGLOBIN 29.3 pg (28.0-32.0); MEAN CORPUSCULAR HGB CONC 32.9 g/dl (32.0-36.0); MEAN CORPUSCULAR VOLUME 88.8 fl (83.0-99.0); MEAN PLATELET VOLUME 9.3 fl (9.4-12.3); MONOCYTES ABSOLUTE AUTO 0.6 K/mm3 (0.0-0.8); MONOCYTES PERCENT AUTO 5.9 % (0.0-8.0); NEUTROPHILS ABSOLUTE AUTO 7.2 K/mm3 (1.8-7.7); NEUTROPHILS PERCENT AUTO 67.3 % (41.0-71.0); PLATELET COUNT,PLT 371 K/mm3 (150-400); RED BLOOD CELL COUNT 4.82 M/mm3 (4.10-5.30); WHITE BLOOD CELL COUNT,WBC 10.67 K/mm3 (3.9-11.3)
[2023-05-21 20:10] VITALS: BP 138/91; PULSE 85
== END 2023-05-21 13:50 | disposition home or self-care (01) ==
LOC: JD.ED 10:57
DX: O03.9 Complete or unspecified spontaneous abortion without complication (principal); Z88.5 Allergy status to narcotic agent
CPT/HCPCS: 36415; 76817; 76817-26; 84702; 85025; 86900; 86901; 99282; 99284

== ENCOUNTER 2024-04-02 06:47 | Inpatient (IN) | payer BC ==
[2024-04-02] MEDS ORDERED: Nalbuphine 10 MG/1 ML Vial IVPUSH PRN (06:54)
[2024-04-02] MEDS ORDERED: Sodium Chloride 0.9% 10 ML Syringe FLUSH PRN (06:54)
[2024-04-02] MEDS ORDERED: Acetaminophen 325 MG Tab PO PRN (06:54)
[2024-04-02] MEDS ORDERED: Ondansetron 4 MG/2 ML SDV IVPUSH PRN (06:54)
[2024-04-02] MEDS ORDERED: Lidocaine 1% 50 ML MDV INJECT PRN (06:54)
[2024-04-02] MEDS ORDERED: Oxytocin/0.9 % Sodium Chloride 30 UNIT/500 ML BAG IV SCH (07:00)
[2024-04-02 07:34] LABS: BASOPHILS PERCENT AUTO 0.2 % (0.0-1.0); EOSINOPHILS ABSOLUTE AUTO 0.1 K/mm3 (0.0-0.4); EOSINOPHILS PERCENT AUTO 1.3 % (0.0-6.0); HEMATOCRIT 39.5 % (37.0-47.0); HEMOGLOBIN 13.1 gm/dl (12.0-16.0); IMMATURE GRAN ABSOLUTE AUTO 0.06 K/mm3 (0.00-0.05); IMMATURE GRAN PERCENT AUTO 0.6 % (0.0-0.4); LYMPHOCYTES ABSOLUTE AUTO 1.8 K/mm3 (1.0-4.8); LYMPHOCYTES PERCENT AUTO 17.8 % (24.0-44.0); MEAN CORPUSCULAR HEMOGLOBIN 29.2 pg (28.0-32.0); MEAN CORPUSCULAR HGB CONC 33.2 g/dl (32.0-36.0); MEAN CORPUSCULAR VOLUME 88.2 fl (83.0-99.0); MEAN PLATELET VOLUME 10.3 fl (9.4-12.3); MONOCYTES ABSOLUTE AUTO 0.6 K/mm3 (0.0-0.8); MONOCYTES PERCENT AUTO 6.4 % (0.0-8.0); NEUTROPHILS ABSOLUTE AUTO 7.4 K/mm3 (1.8-7.7); NEUTROPHILS PERCENT AUTO 73.7 % (41.0-71.0); PLATELET COUNT,PLT 248 K/mm3 (150-400); RED BLOOD CELL COUNT 4.48 M/mm3 (4.10-5.30); WHITE BLOOD CELL COUNT,WBC 9.98 K/mm3 (3.9-11.3)
[2024-04-02] MEDS: Lactated Ringers 1,000 ML IV SCH (07:54)
[2024-04-02] MEDS: Oxytocin/0.9 % Sodium Chloride 30 UNIT/500 ML BAG IV SCH (07:54)
[2024-04-02] MEDS ORDERED: diphenhydrAMINE 50 MG/ML SDV IVPUSH PRN (18:10)
[2024-04-02] MEDS: Bupivacaine/fentaNYL/NS 100 ML Bag EPIDUR PRN (18:30)
[2024-04-02] MEDS: ePHEDrine 50 MG/ML SDV IVPUSH PRN (19:38)
[2024-04-02] MEDS ORDERED: Docusate Sodium 100 MG Cap PO PRN (22:51)
[2024-04-02] MEDS: Acetaminophen 325 MG Tab PO PRN (23:24)
[2024-04-02] MEDS: Benzocaine/Menthol 20%-0.5% Spray 78 GM Cannister TOP PRN (23:25)
[2024-04-02] MEDS: Witch Hazel Medicated Pads 40/Jar TOP PRN (23:25)
[2024-04-03] MEDS: Ibuprofen 600 MG Tab PO SCH (04:40)
[2024-04-03] MEDS: Sodium Chloride 0.9% 10 ML Syringe FLUSH SCH (08:22)
[2024-04-03 23:08] VITALS: BP 138/90; PULSE 85
== END 2024-04-03 22:39 | disposition home or self-care (01) | DRG 560 ==
LOC: JD.OB 06:47 → OBSVTOIN 20:48 → JD.OB 20:48
PROVIDERS: ADMIT Obstetrics & Gynecology; ATTEND Obstetrics & Gynecology
PROC: 10E0XZZ Delivery of Products of Conception, External Approach (ICD-10-PCS; principal; 2024-04-02)
PROC: 10907ZC Drainage of Amniotic Fluid, Therapeutic from Products of Conception, Via Natural or Artificial Opening (ICD-10-PCS; 2024-04-02)
PROC: 3E033VJ Introduction of Other Hormone into Peripheral Vein, Percutaneous Approach (ICD-10-PCS; 2024-04-02)
PROC: 0KQM0ZZ Repair Perineum Muscle, Open Approach (ICD-10-PCS; 2024-04-02)
PROC: 10H07YZ Insertion of Other Device into Products of Conception, Via Natural or Artificial Opening (ICD-10-PCS; 2024-04-02)
DX: O36.5930 Maternal care for other known or suspected poor fetal growth, third trimester, not applicable or unspecified (principal); Z3A.39 39 weeks gestation of pregnancy; Z37.0 Single live birth; O69.81X0 Labor and delivery complicated by cord around neck, without compression, not applicable or unspecified; O70.1 Second degree perineal laceration during delivery; O76 Abnormality in fetal heart rate and rhythm complicating labor and delivery
CPT/HCPCS: 36415; 59025; 59409; 85025; 86592; 86850; 86900; 86901; A9270-GY; C1758; J3490; J7120; J7999